=== PATIENT | male | born 1945 | race Two or more races ===

== ENCOUNTER 2018-09-15 14:11 | Inpatient (IN) | payer MEDICAID ==
[~2018-09-15] VITALS: Ht 175.3 cm; Wt 67.6 kg
[~2018-09-15 14:11] MED LIST: UNOBMED
[2018-09-15 14:20] VITALS: BP 127/62
--- NOTE | 2018-09-15 14:28 | Emergency Room Report ---
History of Present Illness General Chief Complaint: Altered Level of Consciousness Source: Medical Record, EMS Present Illness HPI Patient is a 72-year-old male brought in by basic ambulance after increased agitation and confusion. Patient prior history of Alzheimer's dementia. He was noted to be taking Risperdal. Patient reportedly is normally oriented x1. Patient was noted to have increased confusion. He is normally somewhat confused. History is limited by poor historian. Allergies: Coded Allergies: No Known Allergies (Unverified , 09/15/18) Patient History Past Medical History: see triage record Reviewed Nursing Documentation: PMH: Agreed; PSxH: Agreed Nursing Documentation-PMH Past Medical History: No History, Except For Hx Neurological Problems: Yes - WEAKNESS, DEMENTIA, INSOMNIA Review of Systems All Other Systems: negative except mentioned in HPI Physical Exam Vital Signs Date Time Temp Pulse Resp B/P (MAP) Pulse Ox O2 Delivery O2 Flow Rate FiO2 09/15/18 14:04 98.1 72 16 126/72 (90) 97 Room Air Sp02 EP Interpretation: reviewed General Appearance: normal inspection, alert, Chronically Ill Eyes: bilateral eye PERRL ENT: other - dry mucosa edentulous Neck: limited range of motion Respiratory: lungs clear, normal breath sounds Cardiovascular #1: normal peripheral pulses, regular rate, rhythm, no edema Gastrointestinal: normal inspection, non tender Musculoskeletal: normal inspection, decreased range of motion Neurologic: alert, other - incomprehensible speech Psychiatric: anxious Skin: other - right lower extremity with dark discoloration Medical Decision Making Diagnostic Impression: Primary Impression: Altered level of consciousness Additional Impressions: Dementia Hyperbilirubinemia ER Course Patient presented for altered level of consciousness. Differential diagnosis include was not limited to electrolyte abnormality, CVA, hepatic encephalopathy , dehydration among others. Because of complexity of patient's case laboratory testing and imaging studies were ordered. CT the head read by radiology showed no evidence of acute CVA, chronic white matter changes noted. Patient was started on IV fluids urinalysis showed no definite infection. Laboratory testing was notable for some elevation of the patient's bilirubin. Patient was given medications due to agitation. Dr. Jason Sherwood was contacted for inpatient management further evaluation. Labs Test 09/15/18 14:43 White Blood Count 7.3 K/UL (4.8-10.8) Red Blood Count 5.24 M/UL (4.70-6.10) Hemoglobin 15.7 G/DL (14.2-18.0) Hematocrit 46.4 % (42.0-52.0) Mean Corpuscular Volume 89 FL (80-99) Mean Corpuscular Hemoglobin 29.9 PG (27.0-31.0) Mean Corpuscular Hemoglobin Concent 33.7 G/DL (32.0-36.0) Red Cell Distribution Width 11.4 % (11.6-14.8) Platelet Count 229 K/UL (150-450) Mean Platelet Volume 6.5 FL (6.5-10.1) Neutrophils (%) (Auto) 78.1 % (45.0-75.0) Lymphocytes (%) (Auto) 14.5 % (20.0-45.0) Monocytes (%) (Auto) 5.7 % (1.0-10.0) Eosinophils (%) (Auto) 0.8 % (0.0-3.0) Basophils (%) (Auto) 0.8 % (0.0-2.0) Urine Color Pale yellow Urine Appearance Clear Urine pH 7 (4.5-8.0) Urine Specific [place] 1.015 (1.005-1.035) Urine Protein Negative (NEGATIVE) Urine Glucose (UA) Negative (NEGATIVE) Urine Ketones Negative (NEGATIVE) Urine Blood 5+ (NEGATIVE) Urine Nitrite Negative (NEGATIVE) Urine Bilirubin Negative (NEGATIVE) Urine Urobilinogen Normal MG/DL (0.0-1.0) Urine Leukocyte Esterase 1+ (NEGATIVE) Urine RBC 5-10 /HPF (0 - 0) Urine WBC 2-4 /HPF (0 - 0) Urine Squamous Epithelial Cells None /LPF (NONE/OCC) Urine Bacteria Few /HPF (NONE) Sodium Level 139 MMOL/L (136-145) Potassium Level 4.5 MMOL/L (3.5-5.1) Chloride Level 103 MMOL/L (98-107) Carbon Dioxide Level 30 MMOL/L (21-32) Anion Gap 6 mmol/L (5-15) Blood Urea Nitrogen 18 mg/dL (7-18) Creatinine 0.8 MG/DL (0.55-1.30) Estimat Glomerular Filtration Rate mL/min (>60) Glucose Level 117 MG/DL (74-106) Calcium Level 8.9 MG/DL (8.5-10.1) Total Bilirubin 1.6 MG/DL (0.2-1.0) Direct Bilirubin 0.2 MG/DL (0.0-0.3) Aspartate Amino Transf (AST/SGOT) 32 U/L (15-37) Alanine Aminotransferase (ALT/SGPT) 35 U/L (12-78) Alkaline Phosphatase 70 U/L (46-116) Troponin I 0.000 ng/mL (0.000-0.056) Total Protein 7.7 G/DL (6.4-8.2) Albumin 3.9 G/DL (3.4-5.0) Globulin 3.8 g/dL Albumin/Globulin Ratio 1.0 (1.0-2.7) Thyroid Stimulating Hormone (TSH) 1.428 uiU/mL (0.358-3.740) Urine Opiates Screen Negative (NEGATIVE) Urine Barbiturates Screen Negative (NEGATIVE) Phencyclidine (PCP) Screen Negative (NEGATIVE) Urine Amphetamines Screen Negative (NEGATIVE) Urine Benzodiazepines Screen Negative (NEGATIVE) Urine Cocaine Screen Negative (NEGATIVE) Urine Marijuana (THC) Screen Negative (NEGATIVE) Last Vital Signs Date Time Temp Pulse Resp B/P (MAP) Pulse Ox O2 Delivery O2 Flow Rate FiO2 09/15/18 14:21 66 13 Room Air 09/15/18 14:20 98.1 127/62 100 Status: unchanged Disposition: ADMITTED INPATIENT Condition: Stable Christiano Calvillo MD September 15, 2018 14:28
--- NOTE | 2018-09-15 14:32 | NUR ---
ED Nurse Note: Pt SRIDEVIA from [facility] due to being altered x 1 day. Per facility staffs, pt has become more aggressive since yesterday. AOx1 baseline, hx of Dementia and Alzheimer. Pt tried to get out of bed upon arrival. Vital signs stable sloane. Will cont to monitor.
[2018-09-15] MEDS ORDERED: Haloperidol 5mg/ml Inj IM ONE (14:45)
--- NOTE | 2018-09-15 14:52 | NUR ---
ED Nurse Note: Pt down to CT for imaging.
[2018-09-15 14:59] LABS: APPEARANCE,URINE CLEAR; BILIRUBIN, URINE NEGATIVE (NEGATIVE); COLOR,URINE PALE YELLOW; GLUCOSE, URINE (UA) NEGATIVE (NEGATIVE); KETONES,URINE NEGATIVE (NEGATIVE); LEUKOCYTE ESTERASE ,URINE 1+ (NEGATIVE); NITRITE,URINE NEGATIVE (NEGATIVE); PH,URINE 7 (4.5-8.0); PROTEIN,URINE NEGATIVE (NEGATIVE); UROBILINOGEN,URINE NORMAL MG/DL (0.0-1.0)
[2018-09-15 15:01] LABS: BASOPHILS % (AUTO) 0.8 % (0.0-2.0); EOSINOPHILS % (AUTO) 0.8 % (0.0-3.0); HEMATOCRIT 46.4 % (42.0-52.0); HEMOGLOBIN 15.7 G/DL (14.2-18.0); LYMPHOCYTES % (AUTO) 14.5 % (20.0-45.0); MEAN CORPUSCULAR VOLUME 89 FL (80-99); MONOCYTES % (AUTO) 5.7 % (1.0-10.0); NEUTROPHILS % (AUTO) 78.1 % (45.0-75.0); PLATELET COUNT 229 K/UL (150-450); RED BLOOD COUNT 5.24 M/UL (4.70-6.10); RED CELL DISTRIBUTION WIDTH 11.4 % (11.6-14.8); WHITE BLOOD COUNT 7.3 K/UL (4.8-10.8)
--- NOTE | 2018-09-15 15:02 | NUR ---
ED Nurse Note: Pt back from CT, no sign of acute distress.
[2018-09-15 15:09] LABS: ANION GAP 6 mmol/L (5-15); BLOOD UREA NITROGEN 18 mg/dL (7-18); CALCIUM 8.9 MG/DL (8.5-10.1); CARBON DIOXIDE 30 MMOL/L (21-32); CHLORIDE 103 MMOL/L (98-107); CREATININE 0.8 MG/DL (0.55-1.30); POTASSIUM 4.5 MMOL/L (3.5-5.1); SODIUM 139 MMOL/L (136-145)
--- NOTE | 2018-09-15 15:24 | Diagnostic Imaging Report ---
Indication: Altered mental status Technique: Contiguous 5 mm thick transaxial imaging of the head obtained in a Siemens Sensation [address] scanner. Soft tissue and bone windows generated. Automatic Exposure Control was utilized. Total Dose length Product (DLP): 1397.[address] Dose Index Volume (CTDIvol): 70.38 mGy Comparison: none Findings: There is mild prominence of the ventricles, basal cisterns, and cerebral sulci consistent with atrophy. Mild, nonspecific, white matter hypoattenuation is noted throughout the brain consistent with chronic small vessel disease. There is no midline shift, edema, acute hemorrhage, mass effect, or abnormal extra-axial fluid collections. Bones are unremarkable. Impression: No acute intracranial bleed, mass effect or edema. Mild atrophy of the brain. Nonspecific white matter hypoattenuation probably due to chronic small vessel disease. The CT scanner at [facility] is accredited by the [employer] and the scans are performed using dose optimization techniques as appropriate to a performed exam including Automatic Exposure control.
[2018-09-15 15:25] LABS: ALANINE AMINOTRANSFERASE 35 U/L (12-78); ALBUMIN 3.9 G/DL (3.4-5.0); ALKALINE PHOSPHATASE 70 U/L (46-116); ASPARTATE AMINO TRANSFERASE 32 U/L (15-37); BILIRUBIN,TOTAL 1.6 MG/DL (0.2-1.0)
[2018-09-15 15:28] LABS: BILIRUBIN,DIRECT 0.2 MG/DL (0.0-0.3)
[2018-09-15 15:52] VITALS: BP 132/68
--- NOTE | 2018-09-15 15:56 | NUR ---
ED Nurse Note: Sitter at bedside.
[2018-09-15] MEDS ORDERED: SENNA LAXATIVE8.6 MG PO (16:48)
[2018-09-15] MEDS ORDERED: SYNTHROID25 MCG ORAL (16:48)
[2018-09-15] MEDS ORDERED: POLYETHYLENE GL17 GM ORAL (16:48)
[2018-09-15] MEDS ORDERED: VITAMIN B-12100 MCG ORAL (16:48)
[2018-09-15] MEDS ORDERED: QUETIAPINE FUMA50 MG ORAL (16:48)
[2018-09-15] MEDS ORDERED: MELATONIN1 M1 SL (16:48)
--- NOTE | 2018-09-15 16:48 | NUR ---
medication list has been provided by damaris from [facility] also said patients primary is dr ramos
--- NOTE | 2018-09-15 16:50 | NUR ---
instructed to fax the med list
--- NOTE | 2018-09-15 17:31 | NUR ---
ED Nurse Note: Room is not ready, RN could not take report at this time.
[2018-09-15 17:40] VITALS: BP 128/74
--- NOTE | 2018-09-15 17:45 | NUR ---
ED Nurse Note: Report given to ELVIS Peraza at ext [phone]. Pt to be transfered to room 311-2 on [facility] per protocol.
[2018-09-15 18:00] VITALS: BP 150/64
[2018-09-15 18:15] VITALS: BP 150/64
--- NOTE | 2018-09-15 18:15 | NUR ---
NURSE NOTES: Patient received from ER via gurney in stable condition. Patient alert, oriented x1, calm, confused. Sitter at bedside. Family present. Vitals obtained. Oriented to room. Side rails up x4, bed in lowest position, call light in reach, will continue to monitor.
--- NOTE | 2018-09-15 19:20 | NUR ---
NURSE NOTES: Received report from ELVIS Asher. Patient sleeping, IV intact. Isabel Andrea LVN at bedside. VSS. Will continue to monitor.
--- NOTE | 2018-09-15 19:20 | NUR ---
HAND-OFF: Report given to Xiao LEAL.
[2018-09-15 20:00] VITALS: BP 118/64
--- NOTE | 2018-09-15 20:05 | NUR ---
NURSE NOTES: Son Balta spoke with nurse, states he doubts his father was suicidal. States patient is hard of hearing, speaks Maldivian and get very confused and restless.
[2018-09-15] MEDS ORDERED: Haloperidol 5mg/ml Inj IM PRN (21:35)
[2018-09-15] MEDS ORDERED: Sennosides 8.6mg tab ORAL PRN (23:15)
[2018-09-16] VITALS: BP 117/66
--- NOTE | 2018-09-16 02:31 | NUR ---
NURSE NOTES: Patient sleeping quietly. No distress noted.
[2018-09-16 04:00] VITALS: BP 116/64
[2018-09-16 06:44] LABS: BASOPHILS % (AUTO) 0.9 % (0.0-2.0); EOSINOPHILS % (AUTO) 2.9 % (0.0-3.0); HEMATOCRIT 41.9 % (42.0-52.0); HEMOGLOBIN 14.5 G/DL (14.2-18.0); LYMPHOCYTES % (AUTO) 28.3 % (20.0-45.0); MEAN CORPUSCULAR VOLUME 87 FL (80-99); MONOCYTES % (AUTO) 8.7 % (1.0-10.0); NEUTROPHILS % (AUTO) 59.2 % (45.0-75.0); PLATELET COUNT 212 K/UL (150-450); RED BLOOD COUNT 4.79 M/UL (4.70-6.10); RED CELL DISTRIBUTION WIDTH 11.5 % (11.6-14.8); WHITE BLOOD COUNT 6.2 K/UL (4.8-10.8)
[2018-09-16] MEDS: Levothyroxine 25mcg tab ORAL SCH (06:45)
[2018-09-16 07:10] LABS: ANION GAP 8 mmol/L (5-15); BLOOD UREA NITROGEN 14 mg/dL (7-18); CALCIUM 8.5 MG/DL (8.5-10.1); CARBON DIOXIDE 26 MMOL/L (21-32); CHLORIDE 107 MMOL/L (98-107); CREATININE 0.8 MG/DL (0.55-1.30); POTASSIUM 3.8 MMOL/L (3.5-5.1); SODIUM 141 MMOL/L (136-145)
--- NOTE | 2018-09-16 07:30 | NUR ---
HAND-OFF: Report given to ELVIS Springer.
--- NOTE | 2018-09-16 07:40 | NUR ---
NURSE NOTES: QUIET AND ASLEEP.SITTER AT BEDSIDE. IN NO APPARENT DISTRESS.
[2018-09-16 08:00] VITALS: BP 120/65
[2018-09-16] MEDS: Vitamin B-12 500mcg tab ORAL SCH (08:36)
[2018-09-16 12:00] VITALS: BP 118/70
--- NOTE | 2018-09-16 12:26 | History and Physical ---
History of Present Illness General Date patient seen: Sep 16, 2018 Reason for Hospitalization: Altered Level of Consciousness Present Illness HPI 72-year-old male brought in by basic ambulance after increased agitation and confusion. Patient prior history of Alzheimer's dementia. He was noted to be taking Risperdal. Patient reportedly is normally oriented x1. Patient was noted to have increased confusion. pt received haldol, but still very agitated, confused, unable to give full history Allergies: Coded Allergies: No Known Allergies (Unverified , 09/15/18) Medication History Scheduled Cyanocobalamin (Vitamin B-12), 250 MCG ORAL DAILY, (Reported) Levothyroxine Sodium* (Synthroid*), 25 MCG ORAL DAILY, (Reported) Polyethylene Glycol 3350* (Polyethylene Glycol 3350*), 17 GM ORAL DAILY, ( Reported) Quetiapine Fumarate* (Quetiapine Fumarate*), 50 MG ORAL HS, (Reported) Scheduled PRN Melatonin (Melatonin), 1 MG SL BEDTIME PRN for Insomnia, (Reported) Miscellaneous Medications Sennosides (Senna Laxative), 8.6 MG PO, (Reported) Unable to Obtain Medications (Unable To Obtain Meds), (Reported) Patient History Healthcare decision maker N Resuscitation status Advanced Directive on File No Review of Systems Constitutional: Denies: no symptoms, see HPI, chills, sweats, fever, malaise, weakness, other Eye: Denies: no symptoms, see HPI, eye pain, blurred vision, tearing, double vision, nose pain, nose congestion, acuity changes, discharge, other ENT: Denies: no symptoms, see HPI, ear pain, ear discharge, nose pain, nose congestion, throat pain, throat swelling, mouth pain, hearing loss, nasal discharge, other Respiratory: Denies: no symptoms, see HPI, cough, orthopnea, shortness of breath, stridor, wheezing, NOBLES, sputum, other Cardiovascular: Denies: no symptoms, see HPI, chest pain, edema, palpitations, syncope, PND, other Gastrointestinal: Denies: no symptoms, see HPI, abdominal pain, constipation, diarrhea, nausea, vomiting, melena, hematemesis, other Psychiatric: Reports: emotional problems, hallucinations Neurological: Denies: no symptoms, see HPI, headache, numbness, paresthesia, seizure, tingling, tremors, focal weakness, syncope, dizziness, other Endocrine: Denies: no symptoms, see HPI, excessive sweating, flushing, intolerance to temperature, increased thirst, increased urine, unexplained weight loss, other Physical Exam General Appearance: WD/WN, no apparent distress HEENT: EOMI, supple Neck: supple, normal inspection Cardiovascular/Chest: normal rate Skin Exam: no diaphoresis Neurologic: no Babinski Last 24 Hour Vital Signs Date Time Temp Pulse Resp B/P (MAP) Pulse Ox O2 Delivery O2 Flow Rate FiO2 09/16/18 09:15 Room Air 09/16/18 08:00 98.2 66 19 120/65 (83) 09/16/18 04:00 98.1 64 18 116/64 (81) 97 09/16/18 00:00 97.7 61 16 117/66 (83) 97 09/15/18 22:25 Room Air 09/15/18 20:00 97.3 63 16 118/64 (82) 96 09/15/18 18:28 Room Air 09/15/18 18:15 97.5 67 20 150/64 (92) 97 09/15/18 18:00 97.5 67 18 150/64 (92) 96 09/15/18 17:45 98.1 71 20 128/74 100 Room Air 09/15/18 17:40 98.1 71 20 128/74 100 Room Air 09/15/18 15:52 98.1 68 17 132/68 100 Room Air 09/15/18 14:21 66 13 Room Air 09/15/18 14:20 98.1 66 13 127/62 100 Room Air 09/15/18 14:04 98.1 72 16 126/72 (90) 97 Room Air Intake and Output 09/15/18 09/16/18 19:00 07:00 Intake Total 0 ml 960 ml Balance 0 ml 960 ml Intake Oral 0 ml 360 ml IV Total 600 ml # Voids 1 4 Laboratory Tests Test 09/15/18 14:43 09/16/18 06:01 White Blood Count 7.3 K/UL (4.8-10.8) 6.2 K/UL (4.8-10.8) Red Blood Count 5.24 M/UL (4.70-6.10) 4.79 M/UL (4.70-6.10) Hemoglobin 15.7 G/DL (14.2-18.0) 14.5 G/DL (14.2-18.0) Hematocrit 46.4 % (42.0-52.0) 41.9 % (42.0-52.0) L Mean Corpuscular Volume 89 FL (80-99) 87 FL (80-99) Mean Corpuscular Hemoglobin 29.9 PG (27.0-31.0) 30.2 PG (27.0-31.0) Mean Corpuscular Hemoglobin Concent 33.7 G/DL (32.0-36.0) 34.5 G/DL (32.0-36.0) Red Cell Distribution Width 11.4 % (11.6-14.8) L 11.5 % (11.6-14.8) L Platelet Count 229 K/UL (150-450) 212 K/UL (150-450) Mean Platelet Volume 6.5 FL (6.5-10.1) 6.6 FL (6.5-10.1) Neutrophils (%) (Auto) 78.1 % (45.0-75.0) H 59.2 % (45.0-75.0) Lymphocytes (%) (Auto) 14.5 % (20.0-45.0) L 28.3 % (20.0-45.0) Monocytes (%) (Auto) 5.7 % (1.0-10.0) 8.7 % (1.0-10.0) Eosinophils (%) (Auto) 0.8 % (0.0-3.0) 2.9 % (0.0-3.0) Basophils (%) (Auto) 0.8 % (0.0-2.0) 0.9 % (0.0-2.0) Urine Color Pale yellow Urine Appearance Clear Urine pH 7 (4.5-8.0) Urine Specific [place] 1.015 (1.005-1.035) Urine Protein Negative (NEGATIVE) Urine Glucose (UA) Negative (NEGATIVE) Urine Ketones Negative (NEGATIVE) Urine Blood 5+ (NEGATIVE) H Urine Nitrite Negative (NEGATIVE) Urine Bilirubin Negative (NEGATIVE) Urine Urobilinogen Normal MG/DL (0.0-1.0) Urine Leukocyte Esterase 1+ (NEGATIVE) H Urine RBC 5-10 /HPF (0 - 0) H Urine WBC 2-4 /HPF (0 - 0) Urine Squamous Epithelial Cells None /LPF (NONE/OCC) Urine Bacteria Few /HPF (NONE) Sodium Level 139 MMOL/L (136-145) 141 MMOL/L (136-145) Potassium Level 4.5 MMOL/L (3.5-5.1) 3.8 MMOL/L (3.5-5.1) Chloride Level 103 MMOL/L (98-107) 107 MMOL/L (98-107) Carbon Dioxide Level 30 MMOL/L (21-32) 26 MMOL/L (21-32) Anion Gap 6 mmol/L (5-15) 8 mmol/L (5-15) Blood Urea Nitrogen 18 mg/dL (7-18) 14 mg/dL (7-18) Creatinine 0.8 MG/DL (0.55-1.30) 0.8 MG/DL (0.55-1.30) Estimat Glomerular Filtration Rate mL/min (>60) mL/min (>60) Glucose Level 117 MG/DL (74-106) H 74 MG/DL (74-106) Calcium Level 8.9 MG/DL (8.5-10.1) 8.5 MG/DL (8.5-10.1) Total Bilirubin 1.6 MG/DL (0.2-1.0) H Direct Bilirubin 0.2 MG/DL (0.0-0.3) Aspartate Amino Transf (AST/SGOT) 32 U/L (15-37) Alanine Aminotransferase (ALT/SGPT) 35 U/L (12-78) Alkaline Phosphatase 70 U/L (46-116) Troponin I 0.000 ng/mL (0.000-0.056) Total Protein 7.7 G/DL (6.4-8.2) Albumin 3.9 G/DL (3.4-5.0) Globulin 3.8 g/dL Albumin/Globulin Ratio 1.0 (1.0-2.7) Thyroid Stimulating Hormone (TSH) 1.428 uiU/mL (0.358-3.740) 2.101 uiU/mL (0.358-3.740) Urine Opiates Screen Negative (NEGATIVE) Urine Barbiturates Screen Negative (NEGATIVE) Phencyclidine (PCP) Screen Negative (NEGATIVE) Urine Amphetamines Screen Negative (NEGATIVE) Urine Benzodiazepines Screen Negative (NEGATIVE) Urine Cocaine Screen Negative (NEGATIVE) Urine Marijuana (THC) Screen Negative (NEGATIVE) Height (Feet): 5 Height (Inches): 9.00 Weight (Pounds): 150 Medications Current Medications Medications (Trade) Dose Ordered Sig/Chance Route PRN Reason Start Time Stop Time Status Last Admin Dose Admin Cyanocobalamin (Vitamin B-12) 250 mcg DAILY ORAL 09/16/18 09:00 10/16/18 08:59 09/16/18 08:36 Haloperidol Lactate (Haldol) 2.5 mg Q6H PRN IM For Anxiety 09/15/18 21:35 10/15/18 21:34 09/16/18 10:35 Levothyroxine Sodium (Synthroid) 25 mcg DAILY@0630 ORAL 09/16/18 06:30 10/16/18 06:29 09/16/18 06:45 Polyethylene Glycol (Miralax) 17 gm BEDTIME ORAL 09/16/18 21:00 10/16/18 20:59 Quetiapine Fumarate (SEROquel) 50 mg BEDTIME ORAL 09/16/18 00:00 10/16/18 00:00 09/16/18 00:28 Sennosides (Senokot) 8.6 mg DAILY PRN ORAL Constipation 09/15/18 23:15 10/15/18 23:14 Sodium Chloride 1,000 ml @ 75 mls/hr [id number] IV 09/16/18 00:00 10/16/18 00:00 09/16/18 12:07 Assessment/Plan Problem List: (1) Dementia ICD Codes: F03.90 - Unspecified dementia without behavioral disturbance SNOMED: 15931660 Qualifiers: (2) Hyperbilirubinemia ICD Codes: E80.6 - Other disorders of bilirubin metabolism SNOMED: 56542859 (3) Altered level of consciousness Assessment & Plan: - cont w/u for metabolic derangement -psych eval -haldon prn ICD Codes: R40.4 - Transient alteration of awareness SNOMED: 3743456 Status: stable, unchanged Jason Sherwood M.D. Sep 16, 2018 12:26
[2018-09-16 16:08] VITALS: BP 146/78
--- NOTE | 2018-09-16 16:37 | NUR ---
PT Note PT humphrey completed, treatment initiated. Patient required [id number] techniques to follow through with instructions. Patient can benefit from PT services to increase his muscle strength and balance to improve his functional mobility. Addendum: 09/16/18 at 1638 by CHRIS ESCALANTE PT Amended: Links added.
--- NOTE | 2018-09-16 16:55 | NUR ---
CASE MANAGEMENT: INITIAL REVIEW 72 YO M CLINT FROM [facility] CC: KATELYN PMHx: ALZHEIMER'S. DEMENTIA. SI: AMS. T 98.1 HR 72 RR 16 B/P 126/72 SATS 97% ON RA GLU 117 TBILI 1.6 IS: HALDOL IM X1 PATIENT ADMITTED TO MED/SURG 09/15/2018 @ 1540 DCP: PATIENT TO BE DISCHARGED TO SNF ONCE MEDICALLY CLEARED. PLAN OF CARE: -cont w/u for metabolic derangement -psych markal -catie menendezn
[2018-09-16] MEDS: Haloperidol 5mg/ml Inj IM PRN (16:59)
--- NOTE | 2018-09-16 19:00 | NUR ---
NURSE NOTES: ASLEEP. IN NO DISTRESS. SITTER AT BEDSIDE.
--- NOTE | 2018-09-16 19:30 | NUR ---
NURSE NOTES: Received report from ELVIS Springer. Received pt laying in bed, awake, restless, Nigerian speaking only, sitter at bedside, no distress noted. IV L wrist # 22 patent and intact. IV fluid infusing as ordered. Bed in lowest position and locked, side rails up x 2, bed alarm on, call light within reach. Will continue to monitor.
--- NOTE | 2018-09-16 19:34 | NUR ---
HAND-OFF: Report given to Alexandra MALONE RN.
[2018-09-16 20:00] VITALS: BP 146/70
[2018-09-16] MEDS: Miralax 17gm pkt ORAL SCH (20:46)
--- NOTE | 2018-09-16 22:00 | NUR ---
NURSE NOTES: Pt asleep at this time, no distress noted, sitter at bedside. Will continue to monitor.
[2018-09-17] VITALS: BP 124/66
[2018-09-17 04:00] VITALS: BP 139/75
[2018-09-17] MEDS: Haloperidol 5mg/ml Inj IM PRN ×2 (05:07→18:25)
[2018-09-17] MEDS: Levothyroxine 25mcg tab ORAL SCH (05:42)
--- NOTE | 2018-09-17 07:35 | NUR ---
HAND-OFF: Report written and left for ELVIS Garcia. Pt in stable condition.
[2018-09-17 08:00] VITALS: BP 107/58
--- NOTE | 2018-09-17 08:25 | NUR ---
NURSE NOTES: Received written report from ELVIS Lopez. Patient asleep. Sitter is at bed side. IV fluid running properly. Bed in lowest position, call light within reach. Will continue to monitor.
[2018-09-17] MEDS: Vitamin B-12 500mcg tab ORAL SCH (09:16)
[2018-09-17] MEDS: LORazepam Inj 2mg/ml 1ml IM PRN ×2 (10:02→16:39)
[2018-09-17 12:00] VITALS: BP 123/69
--- NOTE | 2018-09-17 14:41 | NUR ---
PT Note Attempted to see patient for treatment but patient was sound asleep. Per nursing, patient was given Ativan earlier.
[2018-09-17 16:00] VITALS: BP 123/68
--- NOTE | 2018-09-17 19:06 | NUR ---
HAND-OFF: Report given to John Tirado RN.
--- NOTE | 2018-09-17 19:30 | NUR ---
NURSE NOTES: Received report from ELVIS Garcia and rounds made. Received pt laying in bed asleep, arousable by tactile stimuli, alert, confused, Sinhala speaking with slurred speech. No distress noted. IV L W # 22 patent and intact. IV fluid infusing as ordered. Bed in lowest position and locked, side rails up x 2, bed alarm on, call light within reach. Will continue to monitor.
[2018-09-17 20:00] VITALS: BP 135/77
[2018-09-17] MEDS: Miralax 17gm pkt ORAL SCH (21:02)
[2018-09-18] VITALS (7 sets, daily range): BP systolic 113–146; BP diastolic 55–86
[2018-09-18] MEDS: Levothyroxine 25mcg tab ORAL SCH (05:36)
[2018-09-18] MEDS: Haloperidol 5mg/ml Inj IM PRN (06:42)
--- NOTE | 2018-09-18 07:14 | NUR ---
HAND-OFF: Report given to ELVIS Price. Pt in stable condition.
--- NOTE | 2018-09-18 07:14 | NUR ---
NURSE NOTES:BEDSIDE ROUNDS WITH TRE Flannery,PATIENT RESTLESS,WAS JUST MEDICATED WITH HALDOL.SITTER AT BEDSIDE.
[2018-09-18] MEDS: Vitamin B-12 500mcg tab ORAL SCH ×2 (08:25→10:17)
--- NOTE | 2018-09-18 08:32 | Nephrology Progress Note ---
Assessment/Plan Problem List: (1) Dementia (2) Hyperbilirubinemia (3) Altered level of consciousness Assessment: - cont w/u for metabolic derangement -psych eval -haldon prn Subjective ROS Limited/Unobtainable: Yes Subjective pt seen and examined on seroquel and ativan psych eval pending still agitated at times taking po ok Objective Objective Last 24 Hour Vital Signs Date Time Temp Pulse Resp B/P (MAP) Pulse Ox O2 Delivery O2 Flow Rate FiO2 09/18/18 08:01 98.1 61 16 113/59 (77) 97 09/18/18 04:00 97.3 63 16 129/66 (87) 100 09/18/18 00:00 97.4 57 18 135/75 (95) 97 09/17/18 21:00 Room Air 09/17/18 20:00 97.5 58 18 135/77 (96) 97 09/17/18 16:00 97.9 60 17 123/68 (86) 97 09/17/18 12:00 97.8 61 18 123/69 (87) 98 09/17/18 09:00 Room Air Intake and Output 09/17/18 09/18/18 19:00 07:00 Intake Total 1325 ml 945 ml Balance 1325 ml 945 ml Intake Oral 500 ml 120 ml IV Total 825 ml 825 ml # Voids 4 3 # Bowel Movements 1 Height (Feet): 5 Height (Inches): 9.00 Weight (Pounds): 150 General Appearance: no apparent distress, confused EENT: PERRL/EOMI Neck: non-tender Cardiovascular: normal peripheral pulses Respiratory/Chest: lungs clear Abdomen: normal bowel sounds, soft 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 Sep 18, 2018 08:32
--- NOTE | 2018-09-18 08:33 | Nephrology Progress Note ---
Assessment/Plan Problem List: (1) Dementia (2) Hyperbilirubinemia (3) Altered level of consciousness Assessment: - cont w/u for metabolic derangement -psych eval -haldon prn Subjective ROS Limited/Unobtainable: Yes Subjective pt seen and examined on seroquel and ativan psych eval pending still agitated at times taking po ok Objective Objective Last 24 Hour Vital Signs Date Time Temp Pulse Resp B/P (MAP) Pulse Ox O2 Delivery O2 Flow Rate FiO2 09/18/18 08:01 98.1 61 16 113/59 (77) 97 09/18/18 04:00 97.3 63 16 129/66 (87) 100 09/18/18 00:00 97.4 57 18 135/75 (95) 97 09/17/18 21:00 Room Air 09/17/18 20:00 97.5 58 18 135/77 (96) 97 09/17/18 16:00 97.9 60 17 123/68 (86) 97 09/17/18 12:00 97.8 61 18 123/69 (87) 98 09/17/18 09:00 Room Air Intake and Output 09/17/18 09/18/18 19:00 07:00 Intake Total 1325 ml 945 ml Balance 1325 ml 945 ml Intake Oral 500 ml 120 ml IV Total 825 ml 825 ml # Voids 4 3 # Bowel Movements 1 Height (Feet): 5 Height (Inches): 9.00 Weight (Pounds): 150 General Appearance: WD/WN, no apparent distress, confused EENT: PERRL/EOMI, pale conjunctivae Neck: supple, limited range of motion Cardiovascular: normal rate Respiratory/Chest: lungs clear Abdomen: soft Extremities: non-tender Neurologic: life skills teacher II-XII grossly normal Jason Sherwood M.D. Sep 18, 2018 08:33
--- NOTE | 2018-09-18 08:35 | General Progress Note ---
Assessment/Plan Problem List: (1) Dementia ICD Codes: F03.90 - Unspecified dementia without behavioral disturbance SNOMED: 50335655 Qualifiers: (2) Hyperbilirubinemia ICD Codes: E80.6 - Other disorders of bilirubin metabolism SNOMED: 95016859 (3) Altered level of consciousness Assessment & Plan: - cont w/u for metabolic derangement -psych eval -haldon prn ICD Codes: R40.4 - Transient alteration of awareness SNOMED: 1691509 Status: stable, unchanged Subjective Date patient seen: Sep 17, 2018 Constitutional: Reports: weakness HEENT: Denies: no symptoms, eye pain, blurred vision, tearing, double vision, ear pain, ear discharge, nose pain, nose congestion, throat pain, throat swelling, mouth pain, mouth swelling, other Cardiovascular: Denies: no symptoms, chest pain, edema, irregular heart rate, lightheadedness, palpitations, syncope, other Respiratory: Denies: no symptoms, cough, orthopnea, shortness of breath, SOB with excertion, SOB at rest, sputum, stridor, wheezing, other Genitourinary: Denies: no symptoms, burning, discharge, frequency, flank pain, hematuria, incontinence, pain, urgency, other Neurologic/Psychiatric: Reports: anxiety, emotional problems Hematologic/Lymphatic: Reports: no symptoms Allergies: Coded Allergies: No Known Allergies (Unverified , 09/15/18) Objective Last 24 Hour Vital Signs Date Time Temp Pulse Resp B/P (MAP) Pulse Ox O2 Delivery O2 Flow Rate FiO2 09/18/18 08:01 98.1 61 16 113/59 (77) 97 09/18/18 04:00 97.3 63 16 129/66 (87) 100 09/18/18 00:00 97.4 57 18 135/75 (95) 97 09/17/18 21:00 Room Air 09/17/18 20:00 97.5 58 18 135/77 (96) 97 09/17/18 16:00 97.9 60 17 123/68 (86) 97 09/17/18 12:00 97.8 61 18 123/69 (87) 98 09/17/18 09:00 Room Air Intake and Output 09/17/18 09/18/18 19:00 07:00 Intake Total 1325 ml 945 ml Balance 1325 ml 945 ml Intake Oral 500 ml 120 ml IV Total 825 ml 825 ml # Voids 4 3 # Bowel Movements 1 Height (Feet): 5 Height (Inches): 9.00 Weight (Pounds): 150 General Appearance: WD/WN, no apparent distress EENT: PERRL/EOMI Neck: supple Respiratory/Chest: lungs clear Abdomen: soft Jason Sherwood M.D. Sep 18, 2018 08:35
--- NOTE | 2018-09-18 09:00 | NUR ---
PT NOTE Attempted to see patient for PT treatment. Per Dee LEAL patient medicated with Ativan earlier this morning, unable to participate with PT at this time. Will re-attempt later as schedule permits.
[2018-09-18] MEDS: LORazepam Inj 2mg/ml 1ml IM PRN (11:30)
--- NOTE | 2018-09-18 13:36 | NUR ---
CASE MANAGEMENT:REVIEW 09/17/18 SI: DEMENTIA. ALOC. 97.7 72 18 114/64 97% ON RA IS: ATIVAN IM Q6HRS PRN SEROQUEL PO BID HALDOL IM Q6HRS PRN SYNTHROID PO QD IVF@75/HR : MED/SURG STATUS 3 EAST DCP: FROM [facility] PLAN: PSYCH CONSULT PENDING
--- NOTE | 2018-09-18 19:17 | NUR ---
HAND-OFF: Report given to MEGAN LEAL.PATIENT STABLE.
--- NOTE | 2018-09-18 19:30 | NUR ---
NURSE NOTES: Received report & pt from ELVIS Price. Pt lying in bed, confused, Croatian-speaking only, in room air. No s/s of acute distress & no facial grimacing noted. No IV access noted. Bed in lowest position, call light within reach. Will continue to monitor.
[2018-09-18] MEDS: Miralax 17gm pkt ORAL SCH ×2 (21:34→21:40)
[2018-09-19] VITALS: BP 125/61
[2018-09-19 04:00] VITALS: BP 127/72
[2018-09-19] MEDS: Levothyroxine 25mcg tab ORAL SCH (05:44)
[2018-09-19] MEDS: LORazepam Inj 2mg/ml 1ml IM PRN ×2 (05:44→11:38)
--- NOTE | 2018-09-19 07:12 | NUR ---
HAND-OFF: Report given to ELVIS Price. Round done. Pt in stable condition.
--- NOTE | 2018-09-19 07:15 | NUR ---
NURSE NOTES:bedside rounds with amadeo rn. patient awake speech slurred,room air,restless,was just medicated by night rn with atshila im.will continue to monitor.
--- NOTE | 2018-09-19 08:00 | NUR ---
NURSE NOTES:patient restless,got out of bed despite on bed locked and alarmed.try to wipe the bedside table,gustafson using his hospital gown.dont want to go to bed.haldol 5mg im given,effective after an hour,patient went to sleep.
--- NOTE | 2018-09-19 08:00 | Consultation ---
DATE OF CONSULTATION: 09/18/2018 CONSULTING PHYSICIAN: Gulshan Jerome M.D. REFERRING PHYSICIAN: Jason Sherwood M.D. HISTORY OF PRESENT ILLNESS: The patient is a 72-year-old male with a history of dementia, agitation, multiple medical problems, who has been admitted to the hospital due to altered level of consciousness. The patient has been agitated and anxious, evaluation. Poor insight. 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 PAST MEDICAL HISTORY: As above. ALLERGIES: No known drug allergies. SUBSTANCE USE HISTORY: No history of illicit drug use or alcohol. MENTAL STATUS EXAMINATION: The patient is alert, confused, disoriented. Mood is agitated. Affect is flat. Thought process, there is a paucity of thought content. Thought content, no suicidal or homicidal ideations. ASSESSMENT AND PLAN: 1. Medication will be changed to Seroquel 50 mg t.i.d. 2. P.r.n. Haldol. 3. Discontinue . Gulshan Jerome M.D. DR: EVERT JOB#: [id number] CC:
[2018-09-19] MEDS: Haloperidol 5mg/ml Inj IM PRN ×2 (08:01→18:42)
[2018-09-19] MEDS: Vitamin B-12 500mcg tab ORAL SCH (08:06)
[2018-09-19 08:20] VITALS: BP 122/73
--- NOTE | 2018-09-19 11:30 | NUR ---
NURSE NOTES:RESTLESS,REFUSED TO STAY IN BED,EVEN SAT DOWN IN THE FLOOR AND TRYING TO MAP THE FLOOR USING HIS GOWN.PUT TO BED WITH STAFF ASSIST AND MEDICATED WITH ATIVAN IM.
--- NOTE | 2018-09-19 11:45 | NUR ---
PT NOTE Patient observed ambulating in hallway with nursing supervision. Skilled inpatient PT intervention no longer indicated as patient is safe to function with nursing supervision. Patient discharged from PT, Dee RN in agreement.
[2018-09-19 11:51] VITALS: BP 116/75
--- NOTE | 2018-09-19 12:38 | NUR ---
NURSE NOTES:PATIENT SLEEP ONLY FOR AN HOUR AFTER HALDOL IM WAS GIVEN,BECAME RESTLESS AGAIN,DONT WANT TO STAY IN BED,DID COUPLE OF ROUNDS/AMBULATION IN HALLWAY WITH STAFF ASSIST,TOLERATED WELL.
--- NOTE | 2018-09-19 13:15 | NUR ---
NURSE NOTES:PATIENT ASLEEP SOUNDLY,NAD.BED LOCKED,STAFF AT BEDSIDE FOR CLOSE SUPERVISION.
[2018-09-19 16:04] VITALS: BP 126/75
--- NOTE | 2018-09-19 16:09 | NUR ---
CASE MANAGEMENT:REVIEW 09/19/18 SI: DEMENTIA. ALOC. 97.5 66 18 116/75 99% ON RA IS: ATIVAN IM Q6HRS PRN SEROQUEL PO TID HALDOL IM Q6HRS PRN SYNTHROID PO QD IVF@75/HR : MED/SURG STATUS 3 EAST DCP: FROM [facility]
--- NOTE | 2018-09-19 17:45 | Progress Note ---
DATE: 09/19/2018 SUBJECTIVE: The patient is in bed, no behavior issues at this point. The patient is having waxing and waning consciousness, easily agitated. More manageable now on p.r.n. Haldol and Seroquel. MENTAL STATUS EXAMINATION: The patient is alert, confused, and disoriented. Mood is neutral. Affect is flat. Thought process, there is a paucity of thought content. Thought content, no suicidal or homicidal ideations. ASSESSMENT: Stable. PLAN: 1. The patient will continue Seroquel. 2. Continue the Haldol p.r.n. 3. Provide the patient with reality orientation and supportive therapy. Gulshan Jerome M.D. DR: ULICES JOB#: [id number] CC:
--- NOTE | 2018-09-19 19:30 | NUR ---
HAND-OFF: Report given to .MEGAN LEAL.WITH BEDSIDE ROUNDS.PATIENT AWAKE,RESTLESS BUT WAS JUST MEDICATED WITH HALDOL.
[2018-09-19 20:00] VITALS: BP 113/64
[2018-09-19] MEDS: Miralax 17gm pkt ORAL SCH (20:51)
[2018-09-20] VITALS: BP 128/73
[2018-09-20 04:00] VITALS: BP 138/88
[2018-09-20] MEDS: Levothyroxine 25mcg tab ORAL SCH (05:59)
[2018-09-20] MEDS: LORazepam Inj 2mg/ml 1ml IM PRN (05:59)
--- NOTE | 2018-09-20 07:37 | NUR ---
HAND-OFF: Report given to ELVIS Fofana. Pt in stable condition. Rounds done.
--- NOTE | 2018-09-20 07:52 | NUR ---
NURSE NOTES: Received report from Hilda/RN, Patient is agitated, No sign of acute distress/ SOB noted; No IV access at this time. Bed in low position and locked, Call light within reach. Will continue plan of care.
[2018-09-20 08:00] VITALS: BP 129/75
--- NOTE | 2018-09-20 08:31 | General Progress Note ---
Assessment/Plan Problem List: (1) Dementia ICD Codes: F03.90 - Unspecified dementia without behavioral disturbance SNOMED: 02190551 Qualifiers: (2) Hyperbilirubinemia ICD Codes: E80.6 - Other disorders of bilirubin metabolism SNOMED: 52136486 (3) Altered level of consciousness Assessment & Plan: - cont w/u for metabolic derangement -psych eval -haldon prn ICD Codes: R40.4 - Transient alteration of awareness SNOMED: 8977983 Status: stable, unchanged Subjective Date patient seen: Sep 19, 2018 Constitutional: Reports: weakness Gastrointestinal/Abdominal: Reports: poor appetite Allergies: Coded Allergies: No Known Allergies (Unverified , 09/15/18) Subjective pt. seen and examined psych eval noted and appreciated Objective Last 24 Hour Vital Signs Date Time Temp Pulse Resp B/P (MAP) Pulse Ox O2 Delivery O2 Flow Rate FiO2 09/20/18 04:00 97.9 67 18 138/88 (105) 95 09/20/18 00:00 98.0 55 18 128/73 (91) 97 09/19/18 21:00 Room Air 09/19/18 20:00 97.7 57 17 113/64 (80) 96 09/19/18 16:04 97.7 63 19 126/75 (92) 96 09/19/18 11:51 97.5 66 18 116/75 (89) 99 Intake and Output 09/19/18 09/20/18 19:00 07:00 Intake Total 600 ml 360 ml Balance 600 ml 360 ml Intake Oral 600 ml 360 ml # Voids 3 4 Height (Feet): 5 Height (Inches): 9.00 Weight (Pounds): 149 General Appearance: no apparent distress, confused Neck: non-tender Cardiovascular: normal rate, regular rhythm Respiratory/Chest: lungs clear Abdomen: non tender, soft Extremities: non-tender Jason Sherwood M.D. Sep 20, 2018 08:31
[2018-09-20] MEDS ORDERED: ATIVAN2 MG/ML IM (08:33)
[2018-09-20] MEDS ORDERED: SEROQUEL25 MG ORAL (08:33)
[2018-09-20] MEDS: Haloperidol 5mg/ml Inj IM PRN (09:05)
[2018-09-20] MEDS: Vitamin B-12 500mcg tab ORAL SCH (09:05)
[2018-09-20] MEDS ORDERED: LORAZEPAM2 MG ORAL (10:03)
[2018-09-20 12:00] VITALS: BP 132/79
--- NOTE | 2018-09-20 13:00 | NUR ---
NURSE NOTES: Discharge paper done, No acute distress/SOB noted. Patient is in stable condition. Report given to Rajni William. No Belonging. Patient left with Ambulance personal via [facility].
--- NOTE | 2018-09-21 01:15 | Progress Note ---
DATE: 09/20/2018 SUBJECTIVE: The patient is calmer. He has waxing and waning consciousness. Agitated at times. Memory is impaired. MENTAL STATUS EXAMINATION: The patient is alert, disoriented, confused. Mood is neutral. Affect is flat. Thought process, there is a paucity of thought content. Thought content, no suicidal or homicidal ideation. Memory is impaired. ASSESSMENT: Stable. PLAN: We will continue current medications. Provide the patient with reality orientation and supportive therapy. Gulshan Jerome M.D. DR: ULICES JOB#: [id number] CC:
--- NOTE | 2018-09-21 11:30 | Discharge Summary ---
Discharge Summary Discharge Summary _ DATE OF ADMISSION: 09/15/2018 DATE OF DISCHARGE: 09/20/2018 DISCHARGED BY: Dr. Jason Sherwood WOOD HEEL BACK LINER: Dr. Gulshan Jerome BRIEF HOSPITAL COURSE: Patient is a 72-year-old male, who was brought in by ambulance after increased agitation and confusion. Patient has history of Alzheimer's dementia. He was noted to be taking Risperdal. Patient was normally oriented x1. He was noted to have increased confusion. History was limited. On evaluation at the ED, vital signs were stable. Blood work did not show any leukocytosis. Hemoglobin and hematocrit were stable. Electrolytes were normal. LFTs were normal. Total bilirubin was elevated to 1.6. Direct bilirubin normal. TSH was normal. Urine toxicology screen was negative. Urinalysis showed +1 leukocyte esterase, 5-10 RBC, 2-4 WBC, negative nitrite. He had a CT of the head that showed no evidence of acute CVA, chronic white matter changes were noted. He was given IV fluids. He was given Haldol due to agitation. He was then admitted for evaluation of altered level of consciousness, dementia and hyperbilirubinemia. Psychiatric evaluation was done. Patient was agitated at times. He was started on Seroquel 30 mg nightly. He was provided a sitter for safety. Seroquel was increased to 50 mg tid. Haldol and Ativan prn. Patient mentation improved. Sitter was discontinued. He was given PT mobility. He was eventually cleared for discharge back to assisted living. FINAL DIAGNOSES: Altered level of consciousness consistent with metabolic derangement Dementia Hyperbilirubinemia DISPOSITION: Patient was discharged back to [facility]. DISCHARGE MEDICATIONS: Refer to Discharge Medication List. DISCHARGE INSTRUCTIONS: Follow-up in a week. I have been assigned to complete a discharge summary on this account, I was not involved with the patient's management. Mimi Hirsch NP Sep 21, 2018 11:30
== END 2018-09-20 13:10 | DRG 42 ==
LOC: EDBD 14:11 → EMR 14:51 → EDBEDREQ 15:02 → 3E 15:40 → EDBEDREQ 16:14 → 3E 09-17 19:17
DX: G30.9 Alzheimer's disease, unspecified (principal); F05 Delirium due to known physiological condition; F02.80 Dementia in other diseases classified elsewhere, unspecified severity, without behavioral disturbance, psychotic disturbance, mood disturbance, and anxiety; R40.4 Transient alteration of awareness
CPT/HCPCS: 36415; 70450; 80048; 80053; 80307; 81001; 82248; 84443; 84484; 85025; 87081; 96372; 99285